=== PATIENT | male | born 1995 | race Caucasian/White ===

== ENCOUNTER 2025-01-08 08:53 | Day surgery (SDC) | payer OTHER, SELFPAY ==
[2025-01-08 09:17] VITALS: BP 110/72; PULSE 61; RESP 16; TEMP 36.1; O2SAT 100; BMI 20.7
--- NOTE | 2025-01-08 09:19 | PCM.HP.BLA ---
History and Physical Date of Admission: 01/08/25 The patient presents with a lump on his forehead for the past 2 to 3 months. He presents for excision of the mass with submission for pathologic evaluation. An informed consent is obtained and he is marked in the preop holding area. His H&P is unchanged from the previous exam of 01/02/2025. Assessment & Plan Assessment/Plan (1) Neoplasm of uncertain behavior of connective and other soft tissue: PLAN: Plan For excision subcutaneous neoplasm forehead.
[2025-01-08 09:22] VITALS: BP 117/72; BP 129/74; O2SAT 100; O2SAT 99
[2025-01-08] MEDS: Povidone Iodine 30 ML Opthalmic Sol 1 DRP (09:50)
[2025-01-08] MEDS: Lidocaine 1% /Epi 1:100 9 ML, Sodium Bicarbonate 1 MEQ OPERA.SITE (09:53)
--- NOTE | 2025-01-08 10:00 | LES_PTH ---
PATIENT: BERNABE AVILES LOC: [facility] – [place] U#:[id number] AGE/SX: 29/M ROOM: RE01/08/[address]: Dr. Paige Boland MD : 1995 BED: DIS: 01/08/2025 SPEC #: [id number] RECD: 01/08/25 11:12 STATUS: CARLOTTA NORMA #: [id number] BROOKE: 01/08/25 10:[address]: Paige Boland DEPT: SURGICAL PATHOLOGY RECD BY: Nicolas Doss ENTERED: 01/08/25 11:42 SP TYPE: Lesion OTHR DR: Dr. Liang Harden MD Tissues: A - Skin of forehead Procedures: Surgery Specimen Level III HEADER OPERATION: Excision cyst on forehead PRE-OP DIAGNOSIS: Subcutaneous neoplasm of forehead TISSUE SUBMITTED: A- Forehead neoplasm MICROSCOPIC DIAGNOSIS A. Skin, forehead, cyst, excision: * Ruptured and inflamed epidermal inclusion cyst. MICROSCOPIC DESCRIPTION Slides are reviewed. GROSS DESCRIPTION A. Received in formalin in a container labeled with the patient's name, date of , and forehead neoplasm is an unoriented and irregular soft tissue excision measuring 1.6 x 0.8 x 0.7 cm. 1 aspect is partially surfaced by a aly-pink, irregular portion of skin measuring 1.5 x 1.5 cm. The outer surface is inked black, and sectioning reveals an ill-defined, 0.5 x 0.3 x 0.3 cm cystic-like structure filled with white-red, friable material. The remaining surfaces are aly-yellow and unremarkable. The majority of the specimen is submitted in A1. [facility] 01-08-2025 CPT:16279
--- NOTE | 2025-01-08 10:38 | DCINST_ITS ---
Discharge Instructions Dressing / Incision Additional Dressing/Incision Instructions:: Keep your back elevated (recliner position) for the next 3 nights to help reduce swelling and bruising. Take the oral antibiotic (Keflex) 2 times a day until finished. Keep the paper tapes to dry and leave them in place until seen in the office. Follow Up Care Please Follow Up With: Paige Boland MD When: In 1 week Test Results: Test results from this visit will be discussed in further detail at your follow- up appointment, if applicable. Discharge Plan Admission Attending Provider: Paige Boland Primary Care Provider: Liang Harden Instructions Print Language: Slovenian Discharge Orders/Prescriptions Prescriptions: New cephalexin 500 mg capsule 500 mg PO BID 5 Days Qty: 10 0RF Referrals / Follow Up: Liang Harden MD [Primary Care Provider] - Disposition Disposition (needs filled in before D/C Order can be placed): Home, Self Care
[2025-01-08 10:44] VITALS: BP 110/72; BP 120/77; PULSE 57; RESP 16; TEMP 37.1; O2SAT 100
--- NOTE | 2025-01-08 10:44 | OP.PCM_ITS ---
Problems Associated Problem List Diagnoses (1) Neoplasm of uncertain behavior of connective and other soft tissue: Operative Report (Standard) Operative Information Date of Procedure: 01/08/25 Pre-Operative Diagnosis: Subcutaneous mass forehead Post-Operative Diagnosis: Same Surgery/Procedure Performed: Excision subcutaneous mass forehead (2.5 cm) watch dial printer: Yes [employer] Coxswain: Pilo Crowley Tasks completed by commercial lines assistant: Retracting Type of Anesthesia: Local RN Documented Start/Stop Times: Operation Date: 01/08/25 10:00 Case Time Into Pre-Op 01/08/25 09:10 Out of Pre-Op 01/08/25 09:36 Into Room 01/08/25 09:39 Procedure Start 01/08/25 09:53 Procedure End 01/08/25 10:34 Out of Room 01/08/25 10:37 Into Phase II Recovery 01/08/25 10:40 Procedure Start Time: 09:53 Procedure Stop Time: 10:34 Select all DRAINS/GRAFTS/IMPLANTS that apply: None Estimated Blood Loss: Minimal Specimen collected: Yes Description of specimen(s) removed: Subcutaneous mass forehead Description of surgery: The patient presents today with a several month history of a growing mass of the mid forehead. He presents for excision of the mass with submission for pathologic evaluation. He is marked in the preop area prior to surgery. The patient is brought to the operating room and placed on the operating room table in supine position. The face is prepped and draped in usual sterile fashion. 1% Xylocaine with epinephrine buffered with sodium bicarb is used to inject the periphery of the site. Following this, an elliptical incision is made over top of the mass and taken down to the subcutaneous tissue until the mass is identified. The mass is found to partially lie submuscular. The mass is then removed and passed off the operative field to be sent to pathology. The wound is thoroughly irrigated following excision and the site inspected for residual pieces of cyst wall without any being seen. After assuring hemostasis, the wound is closed in layers using a Vicryl suture in the subcutaneous tissue and dermis. Skin edges were approximated with a running subcuticular Vicryl suture and further refinement the closure is done with a running plain gut suture. Dermabond and Steri-Strips are placed on the site. He tolerated the procedure well was taken to the recovery area in an awake and stable condition. Needle and sponge counts are correct. Surgical Findings: As above Complications Complications: No Admit VTE Documentation VTE Mechan Device Prophylaxis: None Reason prophylaxis not ordered: Treatment Not Indicated
[2025-01-08 10:53] VITALS: BP 110/72
== END 2025-01-08 11:03 | disposition home or self-care (01) ==
LOC: SDC 08:54 → AC 08:55
PROVIDERS: PCP Family Medicine; Referring Provider Plastic Surgery; Visit Provider Plastic Surgery
PROC: (CPT 21012; principal; 2025-01-08 09:50)
DX: L72.0 Epidermal cyst (principal)
CPT/HCPCS: 21012; 88304; 88305